=== PATIENT | female | born 1955 | race Hispanic/Latino ===

== ENCOUNTER 2018-01-28 15:22 | Emergency (ER) | payer SELFPAY ==
[~2018-01-28] VITALS: Ht 149.9 cm; Wt 76.2 kg
[2018-01-28] MEDS ORDERED: MORPHINE SULFATE INJ 4 MG/ML INJ IV STA (15:56)
[2018-01-28] MEDS ORDERED: ONDANSETRON HCL INJ 2 MG/ML VIAL IV STA (15:56)
[2018-01-28] MEDS ORDERED: SODIUM CHLORIDE 0.9% 1000ML 1,000 ML IV STA (15:56)
[2018-01-28] MEDS ORDERED: ASPIRIN 81 MG CHEW TAB PO ONE (16:00)
[2018-01-28] MEDS ORDERED: DIATRIZOATE MEGL/DIATRIZOA SOD 30 ML BTL PO ONE (16:04)
--- NOTE | 2018-01-28 16:34 | Diagnostic Imaging Report ---
EXAM: XR CHEST 1 VIEW DATE: 01/28/2018 3:56 PM INDICATION: Pain COMPARISON: None FINDINGS: Lines and Tubes: None Heart and Mediastinum: No acute cardiomediastinal findings. Lungs and Pleura: Underpenetration and body habitus limits evaluation. Bones and Soft Tissues: No acute findings. IMPRESSION: 1. No definite acute finding. Minimal opacity left lung base likely atelectasis and/or epicardial fat. Signed by: Dr. Tirso Calles MD on 01/28/2018 4:31 PM
[2018-01-28 16:37] LABS: BASOPHILS % 0.4 % (0.0-1.0); EOSINOPHILS # (AUTO) 0.1 (0.0-0.4); EOSINOPHILS % 1.6 % (0.0-6.0); HEMATOCRIT 45.3 % (34.2-44.1); HEMOGLOBIN 15.7 g/dL (12.0-16.0); LYMPHOCYTES # (AUTO) 1.8 (1.0-3.2); LYMPHOCYTES % 26.5 % (18.0-39.1); MEAN CORPUSCULAR HGB CONC 34.7 g/dL (31-35); MEAN CORPUSCULAR VOLUME 86.6 fL (81-99); MONOCYTES # (AUTO) 0.4 (0.2-0.8); MONOCYTES % 5.8 % (4.4-11.3); NEUTROPHILS # (AUTO) 4.6 (2.1-6.9); NEUTROPHILS % 65.4 % (38.7-80.0); PLATELET COUNT 303 x10e3/uL (140-360); RED BLOOD COUNT 5.23 x10e6/uL (3.6-5.1); RED CELL DISTRIBUTION WIDTH 11.7 % (11.7-14.4)
[2018-01-28 16:46] LABS: PROTHROMBIN TIME 12.4 seconds (11.9-14.5)
[2018-01-28 16:47] LABS: PARTIAL THROMBOPLASTIN TIME 29.2 seconds (23.8-35.5)
[2018-01-28 16:56] LABS: ALANINE AMINOTRANSFERASE 32 IU/L (0-55); ALBUMIN/GLOBULIN RATIO 1.1 (0.8-2.0); ALKALINE PHOSPHATASE 99 IU/L (40-150); ANION GAP 14.6 mmol/L (8-16); BLOOD UREA NITROGEN 11 mg/dL (7-26); BUN/CREATININE RATIO 16 (6-25); CALCIUM 9.8 mg/dL (8.4-10.2); CARBON DIOXIDE 26 mmol/L (22-29); CHLORIDE 99 mmol/L (98-107); CREATINE KINASE 28 IU/L (29-168); CREATININE, SERUM 0.69 mg/dL (0.57-1.11); EST GLOMERULAR FILTRATION RATE > 60 ML/MIN (60-); GLUCOSE 225 mg/dL (74-118); MAGNESIUM 1.8 MG/DL (1.3-2.1); POTASSIUM 3.6 mmol/L (3.5-5.1); SODIUM 136 mmol/L (136-145)
[2018-01-28 17:00] LABS: B-TYPE NATRIURETIC PEPTIDE2 15.1 pg/mL (0-100)
[2018-01-28 17:14] LABS: CLARITY,URINE CLEAR (CLEAR); COLOR,URINE STRAW (YELLOW); KETONES,URINE NEGATIVE (NEGATIVE); LEUKOCYTE ESTERASE ,URINE 1+ (NEGATIVE); NITRITE,URINE NEGATIVE (NEGATIVE); PROTEIN,URINE DIPSTICK NEGATIVE (NEGATIVE)
[2018-01-28 17:15] LABS: AMYLASE 46 U/L (25-125); BILIRUBIN,URINE NEGATIVE (NEGATIVE); URINE UROBILINOGEN 0.2 mg/dL (0.2 - 1)
[2018-01-28 17:16] LABS: THYROID STIMULATING HORMONE 0.961 uIU/mL (0.350-4.940)
[2018-01-28 17:18] LABS: LIPASE 18 U/L (8-78)
[2018-01-28 17:19] LABS: EPITHELIAL CELLS,URINE FEW /LPF; TRANSITIONAL EPI CELLS,URINE FEW
[2018-01-28 17:20] LABS: MUCUS,URINE RARE (RARE)
[2018-01-28] MEDS ORDERED: IOPAMIDOL 370 MG/ML 200 ML INFUS..BTL INJ ONE ×2 (17:48→20:13)
[2018-01-28] MEDS ORDERED: SODIUM CHLORIDE 0.9% 50ML 0 ML ONE (17:48)
--- NOTE | 2018-01-28 18:03 | Diagnostic Imaging Report ---
EXAM: CT Abdomen and Pelvis WITH contrast INDICATION: COMPARISON: None. TECHNIQUE: Abdomen and Pelvis was scanned utilizing a multidetector helical scanner after administration of IV contrast. Coronal and sagittal reformations were obtained. IV CONTRAST: 100 mL Isovue-370 COMPLICATIONS: None RADIATION DOSE: Total DLP:585 mGy*cm Estimated effective dose: (DLP x 0.015 x size factor) mSv CTDIvol has been reviewed. It is below the limits set by the Radiation Protocol Committee (RPC). FINDINGS: Abdomen: Lung Bases: Lung bases clear. Solid Organs: Mild hepatic steatosis. Calcified gallstone with no distinct inflammatory changes. Liver, adrenals, kidneys, spleen, and pancreas otherwise unremarkable. Upper GI Tract: Gastric decompression limits evaluation. No small bowel obstructive changes. Vascularity: No aortic aneurysm. Lymph Nodes: No suspicious adenopathy. Other: None. Pelvis: Bladder: Unremarkable. Other: Uterus/adnexa unremarkable within limitations of CT. Colon: Diverticulosis of the colon, most notably in the sigmoid colon. Wall thickening present. No definite inflammatory changes. Appendix not inflamed. Bones: Degenerative changes spine. IMPRESSION: 1. No definite acute finding. 2. Diverticulosis. Wall thickening sigmoid colon likely sequela of chronic inflammation. 3. Hepatic steatosis. 4. Cholelithiasis. Signed by: Dr. Tirso Calles MD on 01/28/2018 6:00 PM
[2018-01-28 18:56] VITALS: BP 159/80
[2018-01-28] MEDS ORDERED: SODIUM CHLORIDE 0.9% 50ML 50 ML ONE (20:13)
== END 2018-01-28 19:14 | disposition home or self-care (01) ==
LOC: ER 15:22
DX: R10.12 Left upper quadrant pain (principal); K29.00 Acute gastritis without bleeding; E11.65 Type 2 diabetes mellitus with hyperglycemia
CPT/HCPCS: 36415; 71045; 74177; 80053; 81001; 82150; 82550; 82553; 83605; 83690; 83735; 83880; 84443; 84484; 85025; 85610; 85730; 87086; 93005; 99284; J2405; J7030; Q9967; J2270

== ENCOUNTER 2021-10-18 18:14 | Emergency (ER) | payer BC, OTHER ==
[~2021-10-18] VITALS: Ht 149.9 cm; Wt 76.2 kg
== END 2021-10-18 20:20 | disposition home or self-care (01) ==
LOC: ER 18:19
DX: S20.211A Contusion of right front wall of thorax, initial encounter (principal); V43.52XA Car driver injured in collision with other type car in traffic accident, initial encounter; Y92.488 Other paved roadways as the place of occurrence of the external cause
CPT/HCPCS: 71101; 99283

== ENCOUNTER 2022-03-20 16:53 | Emergency (ER) | payer MEDICARE, OTHER ==
[~2022-03-20] VITALS: Ht 149.9 cm; Wt 76.2 kg
== END 2022-03-20 19:25 | disposition home or self-care (01) ==
LOC: ER 17:40
DX: S63.691A Other sprain of left index finger, initial encounter (principal); S63.692A Other sprain of right middle finger, initial encounter; S63.694A Other sprain of right ring finger, initial encounter; W18.39XA Other fall on same level, initial encounter; Y93.01 Activity, walking, marching and hiking; Y92.89 Other specified places as the place of occurrence of the external cause; E11.9 Type 2 diabetes mellitus without complications
CPT/HCPCS: 99283

== ENCOUNTER → 2022-05-10 | Outpatient (CLI) | payer MEDICARE | LOC: RAD 15:40 | PROVIDERS: ATTEND Internal Medicine | DX: M25.551 Pain in right hip (principal) ==

== ENCOUNTER 2023-06-26 16:46 | Emergency (ER) | payer MEDICARE ==
[~2023-06-26] VITALS: Ht 149.9 cm; Wt 76.2 kg
[2023-06-26 18:07] LABS: BASOPHILS % 0.5 % (0.0-1.0); EOSINOPHILS # (AUTO) 0.1 (0.0-0.4); HEMATOCRIT 46.4 % (34.2-44.1); HEMOGLOBIN 15.3 g/dL (12.0-16.0); LYMPHOCYTES # (AUTO) 1.5 (1.0-3.2); LYMPHOCYTES % 19.4 % (18.0-39.1); MEAN CORPUSCULAR HEMOGLOBIN 30.7 pg (28-32); MEAN CORPUSCULAR VOLUME 93.2 fL (81-99); MONOCYTES # (AUTO) 0.3 (0.2-0.8); MONOCYTES % 4.1 % (4.4-11.3); NEUTROPHILS # (AUTO) 5.8 (2.1-6.9); NEUTROPHILS % 74.5 % (38.7-80.0); PLATELET COUNT 327 x10e3/uL (140-360); RED BLOOD COUNT 4.98 x10e6/uL (3.6-5.1); RED CELL DISTRIBUTION WIDTH 11.9 % (11.7-14.4); WHITE BLOOD COUNT 7.78 x10e3/uL (4.8-10.8)
[2023-06-26 18:12] LABS: CLARITY,URINE CLEAR (CLEAR); COLOR,URINE YELLOW (YELLOW)
[2023-06-26 18:13] LABS: BILIRUBIN,URINE NEGATIVE (NEGATIVE); GLUCOSE, URINE NEGATIVE (NEGATIVE); KETONES,URINE NEGATIVE (NEGATIVE); LEUKOCYTE ESTERASE ,URINE NEGATIVE (NEGATIVE); NITRITE,URINE NEGATIVE (NEGATIVE); PH,URINE 5.5 (5 - 7); PROTEIN,URINE DIPSTICK NEGATIVE (NEGATIVE); URINE UROBILINOGEN 0.2 mg/dL (0.2 - 1)
[2023-06-26 18:14] LABS: INR 0.91; PROTHROMBIN TIME 12.5 seconds (11.9-14.5)
[2023-06-26 18:15] LABS: PARTIAL THROMBOPLASTIN TIME 31.3 seconds (23.8-35.5)
[2023-06-26 18:21] LABS: ALBUMIN 4.6 g/dL (3.5-5.0); ALBUMIN/GLOBULIN RATIO 1.2 (0.8-2.0); ANION GAP 13.8 mmol/L (8-16); BILIRUBIN,TOTAL 0.4 mg/dL (0.2-1.2); CALCIUM 9.8 mg/dL (8.4-10.2); CREATININE, SERUM 0.67 mg/dL (0.57-1.11); POTASSIUM 3.8 mmol/L (3.5-5.1); TOTAL PROTEIN 8.5 g/dL (6.5-8.1)
[2023-06-26 18:27] LABS: TROPONIN I 0.003 ng/mL (0-0.300)
[2023-06-26 18:28] LABS: EPITHELIAL CELLS,URINE FEW /LPF; RBC,URINE 0-5 /HPF (0-5)
[2023-06-26] MEDS ORDERED: IOPAMIDOL 370 MG/ML 100 ML INFUS..BTL INJ ONE (18:28)
[2023-06-26] MEDS ORDERED: SODIUM CHLORIDE 0.9% 100 ML ONE (18:28)
[2023-06-26] MEDS ORDERED: ASPIRIN 325 MG TAB PO ONE (20:30)
[2023-06-26 22:40] VITALS: O2SAT 97
== END 2023-06-26 23:00 | disposition other institution (70) ==
LOC: ER 17:14
DX: R20.0 Anesthesia of skin (principal); G45.9 Transient cerebral ischemic attack, unspecified
CPT/HCPCS: 36415; 70496; 70498; 71046; 80053; 81001; 82550; 84484; 85025; 85610; 85730; 93005; 99284; J7050; Q9967

== ENCOUNTER → 2025-03-03 | Day surgery (SDC) | payer MEDICARE ==
[2025-02-28 12:59] LABS: BASOPHILS % 0.7 % (0.0-1.0); EOSINOPHILS % 3.7 % (0.0-6.0); LYMPHOCYTES % 30.2 % (18.0-39.1); MONOCYTES % 6.9 % (4.4-11.3); NEUTROPHILS % 58.0 % (38.7-80.0); RED CELL DISTRIBUTION WIDTH 12.2 % (11.7-14.4)
[2025-02-28 13:26] LABS: EST GLOMERULAR FILTRATION RATE 98.0 ML/MIN (>=60)
[~2025-03-03] MED LIST: ACETAMINOPHEN 1000 MG/100 ML 100 ML IV ONE; ACETAMINOPHEN/CODEINE 300MG - 30MG TAB ONE; EPHEDRINE SULFATE INJ 50 MG/ML VIAL ONE; FENTANYL CITRATE/PF 100MCG/2 ML INJ ONE; LIDOCAINE HCL 2% LOCAL INJ 5 ML SDV VIAL INJ ONE; PROPOFOL IV EMULSION 10 MG/ML 20 ML VIAL ONE; SEVOFLURANE INHAL SOLN 250 ML PEN BTL ONE; SODIUM CHLORIDE 0.9% INJ 10 ML VIAL ONE
[2025-03-03] MEDS: LACTATED RINGER'S 1,000 ML ONE (07:32)
[2025-03-03 10:07] VITALS: TEMP 97.1
[2025-03-03] MEDS: KETOROLAC TROMETHAMINE 30 MG/ML VIAL ONE (10:44)
[2025-03-03 11:20] VITALS: BP 146/73; PULSE 80; RESP 17; O2SAT 98
== END | disposition home or self-care (01) ==
LOC: OR 05:55
PROVIDERS: ATTEND Surgery
DX: D17.9 Benign lipomatous neoplasm, unspecified (principal); E11.9 Type 2 diabetes mellitus without complications; K21.9 Gastro-esophageal reflux disease without esophagitis; K28.9 Gastrojejunal ulcer, unspecified as acute or chronic, without hemorrhage or perforation; N39.0 Urinary tract infection, site not specified; F41.9 Anxiety disorder, unspecified; Z01.810 Encounter for preprocedural cardiovascular examination; Z01.812 Encounter for preprocedural laboratory examination; Z01.818 Encounter for other preprocedural examination; Z86.73 Personal history of transient ischemic attack (TIA), and cerebral infarction without residual deficits; Z86.16 Personal history of COVID-19
CPT/HCPCS: 36415; 71046; 80053; 85025; 88304; 88342; 93005; J1885; J2003